=== PATIENT | female | born 1960 | race Caucasian/White ===

== ENCOUNTER 2016-10-10 08:36 | Outpatient (CLI) | payer BC | END 2016-10-10 18:59 | disposition home or self-care (01) | LOC: SMA 08:36 | PROVIDERS: ATTEND Family Medicine | DX: Z12.31 Encounter for screening mammogram for malignant neoplasm of breast (principal) | CPT/HCPCS: 77067; G0202 ==

== ENCOUNTER 2016-11-24 07:42 | Emergency (ER) | payer BC ==
[~2016-11-24] VITALS: Ht 160 cm; Wt 90.7 kg
[2016-11-24 07:46] VITALS: BP_SYST 141
[2016-11-24] MEDS ORDERED: NACL 0.9% 1,000 ML IV ONE (07:52)
[2016-11-24] MEDS ORDERED: PROMETHAZINE HCL 25 MG/ML AMP IVP ONE (08:00)
[2016-11-24] MEDS ORDERED: MORPHINE 4 MG/ML INJ. SYRINGE IVP ONE (08:00)
[2016-11-24 08:43] LABS: BILIRUBIN,URINE NEGATIVE (NEGATIVE); CLARITY/URINE CLEAR (CLEAR); COLOR,URINE YELLOW (YELLOW); GLUCOSE,URINE NEGATIVE (NEGATIVE); KETONES,URINE NEGATIVE (NEGATIVE); LEUKOCYTE ESTERASE ,URINE NEGATIVE (NEGATIVE); NITRITE, URINE NEGATIVE (NEGATIVE); PH,URINE 5.5 (5.0-8.0); PROTEIN URINE NEGATIVE (NEGATIVE); UROBILINOGEN,URINE 0.2 (0.2-1.0)
[2016-11-24 08:44] LABS: BLOOD, URINE TRACE (NEGATIVE)
[2016-11-24 08:45] LABS: BASOPHILS % (AUTO) 0.4 % (0.0-2.0); EOSINOPHILS # (AUTO) 0.7 K/uL (0.0-0.4); EOSINOPHILS % (AUTO) 9.9 % (0.0-4.0); HEMATOCRIT 43.8 % (36-48); HEMOGLOBIN 14.7 g/dL (12.0-16.0); LYMPHOCYTES # (AUTO) 1.6 K/uL (1.0-5.5); LYMPHOCYTES % (AUTO) 22.2 % (20.5-51.5); MEAN CORPUSCULAR HEMOGLOBIN 29 pg (27-31); MEAN CORPUSCULAR HGB CONC 34 % (32-36); MEAN CORPUSCULAR VOLUME 85 fL (79.0-98.0); MONOCYTES # (AUTO) 0.3 K/uL (0.0-1.0); MONOCYTES % (AUTO) 4.4 % (1.7-9.3); NEUTROPHILS # (AUTO) 4.5 K/uL (1.8-7.7); NEUTROPHILS % (AUTO) 63.1 % (40.0-70.0); PLATELET COUNT (AUTO) 257 K/uL (130-430); RED BLOOD CELL COUNT(AUTO) 5.17 MIL/uL (4.2-6.2); RED CELL DISTRIBUTION WIDTH 12.7 % (9.0-15.0); WHITE BLOOD COUNT (AUTO) 7.1 K/uL (4.8-10.8)
[2016-11-24 08:47] LABS: CALCIUM 8.6 mg/dL (8.4-11.0); CREATININE 0.79 mg/dL (0.55-1.30); POTASSIUM 3.4 mmol/L (3.5-5.1)
[2016-11-24 08:50] LABS: INR 0.9 (0.8-1.2); PROTHROMBIN TIME 10.2 SECS (9.5-12.5)
[2016-11-24 08:51] LABS: ALBUMIN 3.9 g/dL (3.4-4.8); TOTAL BILIRUBIN 0.8 mg/dL (0.0-1.0); TOTAL PROTEIN, SERUM 7.4 g/dL (6.4-8.3)
[2016-11-24 08:51] LABS: BACTERIA,URINE RARE /HPF (None Seen); MUCUS,URINE 1+ /LPF (None Seen); RBC,URINE 0-3 /HPF (0-3); WBC,URINE 0-3 /HPF (0-3)
[2016-11-24] MEDS: NACL 0.9% 1,000 ML IV ONE ×2 (08:51→09:11)
[2016-11-24] MEDS ORDERED: IOHEXOL 100 ML IV ONE (09:04)
[2016-11-24 10:09] VITALS: BP_SYST 137
== END 2016-11-24 10:09 | disposition home or self-care (01) ==
LOC: SED 07:42
DX: K52.9 Noninfective gastroenteritis and colitis, unspecified (principal); K85.90 Acute pancreatitis without necrosis or infection, unspecified; I10 Essential (primary) hypertension; Z90.49 Acquired absence of other specified parts of digestive tract; Z88.1 Allergy status to other antibiotic agents
CPT/HCPCS: 36415; 74177; 80053; 81000; 82150; 83690; 85025; 85610; 85730; 96361; 96374; 96375; 99285; J2270; J2550; J7030; Q9967

== ENCOUNTER 2016-11-28 10:44 | Inpatient (IN) | payer BC ==
[~2016-11-28] VITALS: Ht 160 cm; Wt 90.7 kg
[2016-11-28 10:46] VITALS: BP_SYST 130
[2016-11-28] MEDS ORDERED: KETOROLAC TROMETHAMINE 30 MG VIAL IVP ONE (11:30)
[2016-11-28] MEDS ORDERED: ONDANSETRON HCL 4 MG/2 ML VIAL IVP ONE (11:30)
[2016-11-28] MEDS ORDERED: MORPHINE 2 MG/ML INJ. SYRINGE IVP ONE (11:30)
[2016-11-28] MEDS ORDERED: NACL 0.9% 1,000 ML IV ONE ×2 (11:30→13:00)
[2016-11-28] MEDS ORDERED: ONDA4TAB22 PO (11:57)
[2016-11-28] MEDS ORDERED: LOVA20TA2 PO (11:57)
[2016-11-28] MEDS ORDERED: HYDR-1189 PO (11:57)
[2016-11-28] MEDS ORDERED: RANI300T7 PO (11:57)
[2016-11-28 11:58] LABS: BASOPHILS % (AUTO) 0.1 % (0.0-2.0); EOSINOPHILS # (AUTO) 0.6 K/uL (0.0-0.4); EOSINOPHILS % (AUTO) 4.7 % (0.0-4.0); HEMATOCRIT 46.4 % (36-48); HEMOGLOBIN 15.2 g/dL (12.0-16.0); LYMPHOCYTES # (AUTO) 1.4 K/uL (1.0-5.5); LYMPHOCYTES % (AUTO) 11.8 % (20.5-51.5); MEAN CORPUSCULAR HEMOGLOBIN 28 pg (27-31); MEAN CORPUSCULAR HGB CONC 33 % (32-36); MEAN CORPUSCULAR VOLUME 85 fL (79.0-98.0); MONOCYTES # (AUTO) 0.5 K/uL (0.0-1.0); NEUTROPHILS # (AUTO) 9.5 K/uL (1.8-7.7); NEUTROPHILS % (AUTO) 79.4 % (40.0-70.0); PLATELET COUNT (AUTO) 250 K/uL (130-430); RED BLOOD CELL COUNT(AUTO) 5.46 MIL/uL (4.2-6.2); RED CELL DISTRIBUTION WIDTH 12.6 % (9.0-15.0)
[2016-11-28 12:03] LABS: CALCIUM 8.7 mg/dL (8.4-11.0); CREATININE 0.83 mg/dL (0.55-1.30); POTASSIUM 3.3 mmol/L (3.5-5.1)
[2016-11-28 12:15] LABS: ALBUMIN 3.7 g/dL (3.4-4.8); TOTAL BILIRUBIN 1.1 mg/dL (0.0-1.0); TOTAL PROTEIN, SERUM 7.1 g/dL (6.4-8.3)
[2016-11-28 12:47] LABS: BILIRUBIN,URINE 1+ (NEGATIVE); BLOOD, URINE NEGATIVE (NEGATIVE); CLARITY/URINE CLEAR (CLEAR); COLOR,URINE YELLOW (YELLOW); GLUCOSE,URINE NEGATIVE (NEGATIVE); KETONES,URINE NEGATIVE (NEGATIVE); LEUKOCYTE ESTERASE ,URINE NEGATIVE (NEGATIVE); NITRITE, URINE NEGATIVE (NEGATIVE); PH,URINE 5.5 (5.0-8.0); PROTEIN URINE 1+ (NEGATIVE); UROBILINOGEN,URINE 0.2 (0.2-1.0)
[2016-11-28 13:01] LABS: BACTERIA,URINE FEW /HPF (None Seen); RBC,URINE 0-3 /HPF (0-3); WBC,URINE 0-3 /HPF (0-3); YEAST,URINE Few /HPF (None Seen)
[2016-11-28 15:21] VITALS: BP_SYST 151
[2016-11-28] MEDS: ONDANSETRON HCL 4 MG/2 ML VIAL IVP PRN (16:13)
[2016-11-28] MEDS: MORPHINE 2 MG/ML INJ. SYRINGE IVP PRN ×2 (16:14→21:14)
[2016-11-28 20:07] VITALS: BP_SYST 133
[2016-11-28] MEDS: NACL 0.9% 1,000 ML IV SCH ×2 (20:09→20:30)
[2016-11-28] MEDS ORDERED: POTASSIUM CHLORIDE 40 MEQ in NS 250 ML IV ONE (21:30)
[2016-11-28] MEDS: KCL 20 mEq in 100 mL (PREMIX) 100 ML IV SCH (22:00)
[2016-11-28] MEDS ORDERED: KCL 40 mEq in 100 mL (PREMIX) 100 ML IV ONE (22:03)
[2016-11-29] MEDS: KCL 20 mEq in 100 mL (PREMIX) 100 ML IV SCH (00:08)
[2016-11-29 00:09] VITALS: BP_SYST 139
[2016-11-29] MEDS: KETOROLAC TROMETHAMINE 30 MG VIAL IVP PRN ×3 (00:11→17:26)
[2016-11-29] MEDS: NACL 0.9% 1,000 ML IV SCH ×3 (01:29→17:32)
[2016-11-29 04:22] VITALS: BP_SYST 138
[2016-11-29 07:02] LABS: ALANINE AMINOTRANSFERASE 28 U/L (12-78); AMYLASE 95 U/L (0-100); ANION GAP 5 (5-15); ASPARTATE AMINOTRANSFERASE 19 U/L (10-37); CALCIUM 7.8 mg/dL (8.4-11.0); CHLORIDE 112 mmol/L (98-107); CREATININE 0.61 mg/dL (0.55-1.30); GLUCOSE 90 mg/dL (70-99); LIPASE 131 U/L (73-393); POTASSIUM 4.2 mmol/L (3.5-5.1); SODIUM SERUM 142 mmol/L (136-145); TOTAL BILIRUBIN 1.1 mg/dL (0.0-1.0); TOTAL PROTEIN, SERUM 5.7 g/dL (6.4-8.3); UREA NITROGEN, BLOOD 12 mg/dL (8-21)
[2016-11-29 07:03] LABS: BASOPHILS % (AUTO) 0.3 % (0.0-2.0); EOSINOPHILS # (AUTO) 0.8 K/uL (0.0-0.4); EOSINOPHILS % (AUTO) 11.6 % (0.0-4.0); HEMATOCRIT 34.2 % (36-48); HEMOGLOBIN 11.5 g/dL (12.0-16.0); LYMPHOCYTES # (AUTO) 1.9 K/uL (1.0-5.5); LYMPHOCYTES % (AUTO) 27.8 % (20.5-51.5); MEAN CORPUSCULAR HEMOGLOBIN 29 pg (27-31); MEAN CORPUSCULAR HGB CONC 34 % (32-36); MEAN CORPUSCULAR VOLUME 85 fL (79.0-98.0); MONOCYTES # (AUTO) 0.4 K/uL (0.0-1.0); MONOCYTES % (AUTO) 5.4 % (1.7-9.3); NEUTROPHILS # (AUTO) 3.9 K/uL (1.8-7.7); NEUTROPHILS % (AUTO) 54.9 % (40.0-70.0); PLATELET COUNT (AUTO) 196 K/uL (130-430); RED BLOOD CELL COUNT(AUTO) 4.01 MIL/uL (4.2-6.2); RED CELL DISTRIBUTION WIDTH 12.7 % (9.0-15.0)
[2016-11-29 08:30] VITALS: BP_SYST 153
[2016-11-29] MEDS: ONDANSETRON HCL 4 MG/2 ML VIAL IVP PRN ×2 (09:00→21:32)
[2016-11-29] MEDS: MORPHINE 2 MG/ML INJ. SYRINGE IVP PRN ×3 (10:36→21:09)
[2016-11-29 11:46] VITALS: BP_SYST 123
[2016-11-29 15:36] VITALS: BP_SYST 133
[2016-11-29 19:55] VITALS: BP_SYST 134
[2016-11-30 00:07] VITALS: BP_SYST 139
[2016-11-30] MEDS: MORPHINE 2 MG/ML INJ. SYRINGE IVP PRN ×5 (01:33→21:14)
[2016-11-30] MEDS: NACL 0.9% 1,000 ML IV SCH ×5 (01:33→22:50)
[2016-11-30 04:42] VITALS: BP_SYST 128
[2016-11-30] MEDS: ONDANSETRON HCL 4 MG/2 ML VIAL IVP PRN ×2 (06:05→21:14)
[2016-11-30 07:06] LABS: BASOPHILS % (AUTO) 0.4 % (0.0-2.0); EOSINOPHILS # (AUTO) 0.7 K/uL (0.0-0.4); EOSINOPHILS % (AUTO) 11.1 % (0.0-4.0); HEMOGLOBIN 11.7 g/dL (12.0-16.0); LYMPHOCYTES # (AUTO) 1.8 K/uL (1.0-5.5); LYMPHOCYTES % (AUTO) 29.4 % (20.5-51.5); MEAN CORPUSCULAR HEMOGLOBIN 29 pg (27-31); MEAN CORPUSCULAR HGB CONC 34 % (32-36); MEAN CORPUSCULAR VOLUME 85 fL (79.0-98.0); MONOCYTES # (AUTO) 0.3 K/uL (0.0-1.0); MONOCYTES % (AUTO) 4.7 % (1.7-9.3); NEUTROPHILS # (AUTO) 3.4 K/uL (1.8-7.7); NEUTROPHILS % (AUTO) 54.4 % (40.0-70.0); PLATELET COUNT (AUTO) 197 K/uL (130-430); RED BLOOD CELL COUNT(AUTO) 3.99 MIL/uL (4.2-6.2); RED CELL DISTRIBUTION WIDTH 12.3 % (9.0-15.0); WHITE BLOOD COUNT (AUTO) 6.2 K/uL (4.8-10.8)
[2016-11-30 07:22] LABS: ALBUMIN 3.3 g/dL (3.4-4.8); BILIRUBIN,DIRECT 0.3 mg/dL (0.0-0.3); TOTAL BILIRUBIN 1.4 mg/dL (0.0-1.0); TOTAL PROTEIN, SERUM 6.1 g/dL (6.4-8.3)
[2016-11-30 09:25] VITALS: BP_SYST 132
[2016-11-30] MEDS ORDERED: PSYLLIUM HUSK 1 PKT PACKET PO ONE (10:45)
[2016-11-30] MEDS ORDERED: DOCUSATE SODIUM 100 MG CAPSULE PO ONE (10:45)
[2016-11-30] MEDS: KETOROLAC TROMETHAMINE 30 MG VIAL IVP PRN (10:54)
[2016-11-30 11:29] VITALS: BP_SYST 133
[2016-11-30 15:33] VITALS: BP_SYST 133
[2016-12-01 00:40] VITALS: BP_SYST 140
[2016-12-01] MEDS: MORPHINE 2 MG/ML INJ. SYRINGE IVP PRN ×6 (01:03→22:33)
[2016-12-01 04:25] VITALS: BP_SYST 137
[2016-12-01] MEDS: NACL 0.9% 1,000 ML IV SCH ×2 (05:08→12:51)
[2016-12-01] MEDS: ONDANSETRON HCL 4 MG/2 ML VIAL IVP PRN ×3 (05:11→22:38)
[2016-12-01 06:54] LABS: BASOPHILS % (AUTO) 0.4 % (0.0-2.0); EOSINOPHILS # (AUTO) 0.7 K/uL (0.0-0.4); EOSINOPHILS % (AUTO) 10.6 % (0.0-4.0); HEMATOCRIT 33.1 % (36-48); HEMOGLOBIN 11.6 g/dL (12.0-16.0); LYMPHOCYTES # (AUTO) 1.7 K/uL (1.0-5.5); LYMPHOCYTES % (AUTO) 25.4 % (20.5-51.5); MEAN CORPUSCULAR HEMOGLOBIN 30 pg (27-31); MEAN CORPUSCULAR HGB CONC 35 % (32-36); MEAN CORPUSCULAR VOLUME 85 fL (79.0-98.0); MONOCYTES # (AUTO) 0.4 K/uL (0.0-1.0); MONOCYTES % (AUTO) 5.4 % (1.7-9.3); NEUTROPHILS # (AUTO) 3.8 K/uL (1.8-7.7); NEUTROPHILS % (AUTO) 58.2 % (40.0-70.0); PLATELET COUNT (AUTO) 194 K/uL (130-430); RED BLOOD CELL COUNT(AUTO) 3.92 MIL/uL (4.2-6.2); RED CELL DISTRIBUTION WIDTH 12.6 % (9.0-15.0); WHITE BLOOD COUNT (AUTO) 6.6 K/uL (4.8-10.8)
[2016-12-01 07:26] LABS: ALBUMIN 3.2 g/dL (3.4-4.8); CALCIUM 8.1 mg/dL (8.4-11.0); CREATININE 0.81 mg/dL (0.55-1.30); POTASSIUM 3.4 mmol/L (3.5-5.1); TOTAL BILIRUBIN 0.9 mg/dL (0.0-1.0); TOTAL PROTEIN, SERUM 6.3 g/dL (6.4-8.3)
[2016-12-01 07:55] VITALS: BP_SYST 131
[2016-12-01] MEDS ORDERED: MINERAL OIL 133 ML ENEMA RC ONE ×3 (08:45→19:00)
[2016-12-01] MEDS ORDERED: MILK OF MAGNESIA 30 ML UDC PO ONE (09:00)
[2016-12-01] MEDS: DOCUSATE SODIUM 100 MG CAPSULE PO SCH (09:57)
[2016-12-01] MEDS: FAMOTIDINE 20 MG TABLET PO SCH ×2 (09:57→20:48)
[2016-12-01] MEDS: PSYLLIUM HUSK 1 PKT PACKET PO SCH (09:57)
[2016-12-01 11:32] VITALS: BP_SYST 134
[2016-12-01] MEDS: KETOROLAC TROMETHAMINE 30 MG VIAL IVP PRN (12:34)
[2016-12-01 15:33] VITALS: BP_SYST 127
[2016-12-02 00:32] VITALS: BP_SYST 159
[2016-12-02] MEDS: NACL 0.9% 1,000 ML IV SCH ×4 (02:25→23:55)
[2016-12-02] MEDS: MORPHINE 2 MG/ML INJ. SYRINGE IVP PRN ×4 (03:58→21:17)
[2016-12-02 04:47] VITALS: BP_SYST 144
[2016-12-02 06:59] LABS: BASOPHILS % (AUTO) 0.5 % (0.0-2.0); EOSINOPHILS # (AUTO) 0.6 K/uL (0.0-0.4); EOSINOPHILS % (AUTO) 8.1 % (0.0-4.0); HEMATOCRIT 33.8 % (36-48); HEMOGLOBIN 11.7 g/dL (12.0-16.0); LYMPHOCYTES # (AUTO) 1.6 K/uL (1.0-5.5); LYMPHOCYTES % (AUTO) 19.9 % (20.5-51.5); MEAN CORPUSCULAR HEMOGLOBIN 29 pg (27-31); MEAN CORPUSCULAR HGB CONC 35 % (32-36); MEAN CORPUSCULAR VOLUME 85 fL (79.0-98.0); MONOCYTES # (AUTO) 0.5 K/uL (0.0-1.0); MONOCYTES % (AUTO) 5.9 % (1.7-9.3); NEUTROPHILS # (AUTO) 5.3 K/uL (1.8-7.7); NEUTROPHILS % (AUTO) 65.6 % (40.0-70.0); PLATELET COUNT (AUTO) 200 K/uL (130-430); RED BLOOD CELL COUNT(AUTO) 3.97 MIL/uL (4.2-6.2); RED CELL DISTRIBUTION WIDTH 12.6 % (9.0-15.0)
[2016-12-02 07:34] LABS: ALBUMIN 3.3 g/dL (3.4-4.8); CALCIUM 8.2 mg/dL (8.4-11.0); CREATININE 0.6 mg/dL (0.55-1.30); POTASSIUM 3.3 mmol/L (3.5-5.1); TOTAL BILIRUBIN 0.8 mg/dL (0.0-1.0); TOTAL PROTEIN, SERUM 6.2 g/dL (6.4-8.3)
[2016-12-02] MEDS: ONDANSETRON HCL 4 MG/2 ML VIAL IVP PRN (08:09)
[2016-12-02 08:50] VITALS: BP_SYST 152
[2016-12-02] MEDS: PSYLLIUM HUSK 1 PKT PACKET PO SCH (09:00)
[2016-12-02] MEDS: DOCUSATE SODIUM 100 MG CAPSULE PO SCH (09:00)
[2016-12-02] MEDS: FAMOTIDINE 20 MG TABLET PO SCH ×2 (09:00→21:20)
[2016-12-02] MEDS ORDERED: MEPERIDINE HCL/PF 100 MG/ML AMP ONE (11:46)
[2016-12-02] MEDS ORDERED: SIMETHICONE 40 MG/0.6 ML ML ONE (11:47)
[2016-12-02 12:00] VITALS: BP_SYST 141
[2016-12-02] MEDS: MIDAZOLAM HCL 5 MG/5 ML VIAL ONE ×3 (15:28→15:32)
[2016-12-02 16:25] VITALS: BP_SYST 140
[2016-12-02] MEDS: LIPASE/PROTEASE/AMYLASE 1 CAP PO SCH ×2 (18:00→18:15)
[2016-12-02 19:49] VITALS: BP_SYST 144
[2016-12-03] VITALS: BP_SYST 144
[2016-12-03] MEDS: NACL 0.9% 1,000 ML IV SCH ×5 (00:01→23:45)
[2016-12-03] MEDS: MORPHINE 2 MG/ML INJ. SYRINGE IVP PRN ×4 (04:00→22:27)
[2016-12-03 04:05] VITALS: BP_SYST 124
[2016-12-03 09:00] VITALS: BP_SYST 124
[2016-12-03] MEDS: DOCUSATE SODIUM 100 MG CAPSULE PO SCH (09:13)
[2016-12-03] MEDS: FAMOTIDINE 20 MG TABLET PO SCH ×2 (09:13→21:21)
[2016-12-03] MEDS: PSYLLIUM HUSK 1 PKT PACKET PO SCH (09:13)
[2016-12-03] MEDS: LIPASE/PROTEASE/AMYLASE 1 CAP PO SCH ×3 (09:15→18:15)
[2016-12-03] MEDS ORDERED: MINERAL OIL 133 ML ENEMA RC ONE (09:30)
[2016-12-03] MEDS: ONDANSETRON HCL 4 MG/2 ML VIAL IVP PRN ×2 (10:50→16:48)
[2016-12-03 12:00] VITALS: BP_SYST 139
[2016-12-03 15:39] VITALS: BP_SYST 139
[2016-12-03] MEDS ORDERED: MILK OF MAGNESIA 30 ML UDC PO ONE (18:15)
[2016-12-03 21:29] VITALS: BP_SYST 140
[2016-12-04 00:55] VITALS: BP_SYST 156
[2016-12-04 06:15] VITALS: BP_SYST 150
[2016-12-04] MEDS: NACL 0.9% 1,000 ML IV SCH (06:54)
[2016-12-04] MEDS: MORPHINE 2 MG/ML INJ. SYRINGE IVP PRN (06:54)
[2016-12-04] MEDS: ONDANSETRON HCL 4 MG/2 ML VIAL IVP PRN (07:06)
[2016-12-04 08:41] VITALS: BP_SYST 160
[2016-12-04] MEDS: FAMOTIDINE 20 MG TABLET PO SCH (09:20)
[2016-12-04] MEDS: DOCUSATE SODIUM 100 MG CAPSULE PO SCH (09:20)
[2016-12-04] MEDS: PSYLLIUM HUSK 1 PKT PACKET PO SCH (09:20)
[2016-12-04] MEDS: LIPASE/PROTEASE/AMYLASE 1 CAP PO SCH ×2 (09:22→11:27)
[2016-12-04] MEDS ORDERED: ACETAMINOPHEN 500 MG TABLET PO PRN (09:30)
[2016-12-04 11:10] LABS: BASOPHILS % (AUTO) 0.5 % (0.0-2.0); EOSINOPHILS # (AUTO) 0.5 K/uL (0.0-0.4); EOSINOPHILS % (AUTO) 8.2 % (0.0-4.0); HEMATOCRIT 34.3 % (36-48); HEMOGLOBIN 11.9 g/dL (12.0-16.0); LYMPHOCYTES # (AUTO) 1.5 K/uL (1.0-5.5); MEAN CORPUSCULAR HEMOGLOBIN 29 pg (27-31); MEAN CORPUSCULAR HGB CONC 35 % (32-36); MEAN CORPUSCULAR VOLUME 84 fL (79.0-98.0); MONOCYTES # (AUTO) 0.4 K/uL (0.0-1.0); NEUTROPHILS % (AUTO) 61.3 % (40.0-70.0); PLATELET COUNT (AUTO) 207 K/uL (130-430); RED BLOOD CELL COUNT(AUTO) 4.09 MIL/uL (4.2-6.2); RED CELL DISTRIBUTION WIDTH 12.6 % (9.0-15.0); WHITE BLOOD COUNT (AUTO) 6.4 K/uL (4.8-10.8)
[2016-12-04 11:23] LABS: ALBUMIN 3.4 g/dL (3.4-4.8); BILIRUBIN,DIRECT 0.2 mg/dL (0.0-0.3); POTASSIUM 3.6 mmol/L (3.5-5.1); TOTAL BILIRUBIN 0.9 mg/dL (0.0-1.0); TOTAL PROTEIN, SERUM 6.4 g/dL (6.4-8.3)
[2016-12-04 12:00] VITALS: BP_SYST 140
[2016-12-04] MEDS ORDERED: KETOROLAC TROMETHAMINE 30 MG VIAL IVP SCH (12:00)
[2016-12-04] MEDS ORDERED: MINERAL OIL 133 ML ENEMA RC ONE (14:00)
[2016-12-04 14:42] VITALS: BP_SYST 142
[2016-12-04] MEDS ORDERED: LOSARTAN POTASSIUM 50 MG TABLET (COZAAR) PO ONE (15:00)
[2016-12-04 16:00] VITALS: BP_SYST 138
[2016-12-04] MEDS ORDERED: LOSARTAN POTASSIUM 50 MG TABLET (COZAAR) PO SCH (21:00)
[2016-12-05] MEDS ORDERED: LOSARTAN POTASSIUM 50 MG TABLET (COZAAR) PO SCH (09:00)
== END 2016-12-04 15:30 | disposition home or self-care (01) | DRG 391 ==
LOC: SED 10:44 → SMU 14:02
PROVIDERS: ADMIT Family Medicine; ATTEND Family Medicine
PROC: 0DB68ZX Excision of Stomach, Via Natural or Artificial Opening Endoscopic, Diagnostic (ICD-10-PCS; 2016-12-02)
PROC: 0DB98ZX Excision of Duodenum, Via Natural or Artificial Opening Endoscopic, Diagnostic (ICD-10-PCS; principal; 2016-12-02 13:00)
DX: K29.70 Gastritis, unspecified, without bleeding (principal); K85.90 Acute pancreatitis without necrosis or infection, unspecified; I10 Essential (primary) hypertension; K21.9 Gastro-esophageal reflux disease without esophagitis; E66.9 Obesity, unspecified; Z80.3 Family history of malignant neoplasm of breast; Z90.49 Acquired absence of other specified parts of digestive tract; Z90.710 Acquired absence of both cervix and uterus; Z88.1 Allergy status to other antibiotic agents; Z88.2 Allergy status to sulfonamides; Z68.35 Body mass index [BMI] 35.0-35.9, adult; Z79.899 Other long term (current) drug therapy
CPT/HCPCS: 36415; 43239; 74000-TC; 74181; 76700-TC; 76856-TC; 80053; 80076; 81000-TC; 82150-TC; 82787; 83605; 83690-TC; 84132-TC; 84478-TC; 85025; 85610-TC; 85730-TC; 86038; 87040-TC; 87081; 88305; 88312; 88313; 96361; 96374; 96375; 99285; J1885; J2175; J2250; J2270; J2405; J3480; J7030; J7050

== ENCOUNTER 2017-07-15 18:55 | Emergency (ER) | payer BC ==
[~2017-07-15] VITALS: Ht 160 cm; Wt 88.0 kg
[~2017-07-15 18:55] MED LIST: HYDR-1189 PO; LOVA20TA2 PO; ONDA4TAB22 PO; RANI300T7 PO
[2017-07-15 19:01] VITALS: BP_SYST 162
--- NOTE | 2017-07-15 19:05 | NUR ---
PT PLACED IN BED 7
--- NOTE | 2017-07-15 19:07 | NUR ---
ER ORESTES Lubin at bedside evaluating the patient
--- NOTE | 2017-07-15 19:14 | NUR ---
Patient to ER C/O bump to the head. Patient states that she was taking the trash out when the wind blew the lid off and hit her in the head. Patient denies KO, mild nausea, no vomiting, ambulated with steady gait. Patient has a large hematoma to the right side of the forehead. AAOx4, unlabored breathing, no signs of acute distress.
[2017-07-15] MEDS ORDERED: HYDROcodone/ACETAMIN 7.5-325 MG TAB PO ONE (19:15)
[2017-07-15] MEDS ORDERED: ONDANSETRON 4 MG ODT TAB PO ONE (19:15)
[2017-07-15] MEDS ORDERED: KETOROLAC TROMETHAMINE 60 MG/2 ML VIAL IM ONE (19:45)
--- NOTE | 2017-07-15 20:15 | NUR ---
Patient reports pain 2/10 30 minutes after administration of TORADOL. No adverse reactions noted. Will continue to monitor.
[2017-07-15 20:26] VITALS: BP_SYST 136
--- NOTE | 2017-07-15 20:26 | NUR ---
Patient given written and verbal discharge instructions and verbalizes understanding. ER [employer] Delmy Lara discussed with patient the results and treatment provided. Patient in stable condition. ID arm band removed. Rx of tramadol, motrin, zofran given. Patient educated on pain management and to follow up with PMD. Pain Scale 0/10. Opportunity for questions provided and answered.
== END 2017-07-15 20:26 | disposition home or self-care (01) ==
LOC: SED 18:55
DX: S00.83XA Contusion of other part of head, initial encounter (principal); Z88.2 Allergy status to sulfonamides; Z88.1 Allergy status to other antibiotic agents; W22.8XXA Striking against or struck by other objects, initial encounter; Y93.89 Activity, other specified; Y92.89 Other specified places as the place of occurrence of the external cause; Y99.8 Other external cause status
CPT/HCPCS: 96372; 99283; J1885; Q0162

== ENCOUNTER 2017-09-01 12:28 | Outpatient (CLI) | payer BC | END 2017-09-01 21:09 | disposition home or self-care (01) | LOC: SUS 12:28 | PROVIDERS: ATTEND Family Medicine | DX: K85.90 Acute pancreatitis without necrosis or infection, unspecified (principal); R93.2 Abnormal findings on diagnostic imaging of liver and biliary tract; Z86.79 Personal history of other diseases of the circulatory system | CPT/HCPCS: 76700-TC ==

== ENCOUNTER 2017-12-16 09:40 | Outpatient (CLI) | payer BC | END 2017-12-16 20:21 | disposition home or self-care (01) | LOC: SMA 09:40 | PROVIDERS: ATTEND Family Medicine | DX: Z12.31 Encounter for screening mammogram for malignant neoplasm of breast (principal) | CPT/HCPCS: 77067 ==

== ENCOUNTER 2018-05-28 21:49 | Emergency (ER) | payer BC ==
[~2018-05-28] VITALS: Ht 160 cm; Wt 90.7 kg
[2018-05-28 22:01] VITALS: BP_SYST 152
[2018-05-28 22:30] LABS: BILIRUBIN,URINE NEGATIVE (NEGATIVE); BLOOD, URINE NEGATIVE (NEGATIVE); CLARITY/URINE SL HAZY (CLEAR); COLOR,URINE YELLOW (YELLOW); GLUCOSE,URINE NEGATIVE (NEGATIVE); KETONES,URINE NEGATIVE (NEGATIVE); LEUKOCYTE ESTERASE ,URINE NEGATIVE (NEGATIVE); NITRITE, URINE NEGATIVE (NEGATIVE); PH,URINE 5.5 (5.0-8.0); PROTEIN URINE NEGATIVE (NEGATIVE); UROBILINOGEN,URINE 0.2 (0.2-1.0)
[2018-05-28 22:42] LABS: BASOPHILS % (AUTO) 0.6 % (0.0-2.0); EOSINOPHILS # (AUTO) 0.2 K/uL (0.0-0.4); EOSINOPHILS % (AUTO) 3.2 % (0.0-4.0); HEMATOCRIT 38.8 % (36-48); HEMOGLOBIN 13.1 g/dL (12.0-16.0); LYMPHOCYTES # (AUTO) 2.6 K/uL (1.0-5.5); LYMPHOCYTES % (AUTO) 35.7 % (20.5-51.5); MEAN CORPUSCULAR HEMOGLOBIN 30 pg (27-31); MEAN CORPUSCULAR HGB CONC 34 % (32-36); MEAN CORPUSCULAR VOLUME 88 fL (79.0-98.0); MONOCYTES # (AUTO) 0.4 K/uL (0.0-1.0); MONOCYTES % (AUTO) 5.7 % (1.7-9.3); NEUTROPHILS % (AUTO) 54.8 % (40.0-70.0); PLATELET COUNT (AUTO) 251 K/uL (130-430); RED BLOOD CELL COUNT(AUTO) 4.41 MIL/uL (4.2-6.2); RED CELL DISTRIBUTION WIDTH 12.8 % (9.0-15.0); WHITE BLOOD COUNT (AUTO) 7.2 K/uL (4.8-10.8)
[2018-05-28 22:51] LABS: CREATININE 0.56 mg/dL (0.55-1.30); POTASSIUM 3.7 mmol/L (3.5-5.1)
[2018-05-28 22:55] LABS: ALBUMIN 3.9 g/dL (3.4-4.8); TOTAL BILIRUBIN 0.9 mg/dL (0.0-1.0)
--- NOTE | 2018-05-29 01:07 | NUR ---
Patient to ER bed 08 to gown for evaluation. Side rails up. Report received from IVELISSE Monroe.
--- NOTE | 2018-05-29 01:08 | NUR ---
Patient complaining of right flank pain x 4 days with nausea. Reports pain 8/10 radiating to epigastric area. Patient states she has history of pancreatitis. No other complaints/injuries per patient or as noted. Will continue to monitor.
--- NOTE | 2018-05-29 01:10 | NUR ---
ER at bedside examining patient.
--- NOTE | 2018-05-29 01:36 | NUR ---
Patient states that "I want to do the CT scan with my own doctor. I just want to go home and lay down." notified.
[2018-05-29] MEDS ORDERED: HYDROcodone/ACETAMIN 10-325 MG TAB PO ONE (02:00)
[2018-05-29 02:08] VITALS: BP_SYST 136
--- NOTE | 2018-05-29 02:08 | NUR ---
Patient given written and verbal discharge instructions and verbalizes understanding. ER MD discussed with patient the results and treatment provided. Patient in stable condition. ID arm band removed. Rx of Pettibone given. Patient educated on pain management and to follow up with PMD in 2-3 days. Pain Scale 0/10 Opportunity for questions provided and answered. Medication side effect fact sheet provided.
== END 2018-05-29 02:08 | disposition home or self-care (01) ==
LOC: SED 21:49
DX: R10.84 Generalized abdominal pain (principal); R03.0 Elevated blood-pressure reading, without diagnosis of hypertension; Z90.710 Acquired absence of both cervix and uterus; Z88.2 Allergy status to sulfonamides; Z88.8 Allergy status to other drugs, medicaments and biological substances; Z79.899 Other long term (current) drug therapy
CPT/HCPCS: 36415; 80053; 81003; 83690-TC; 85025; 99284

== ENCOUNTER 2018-12-28 12:59 | Outpatient (CLI) | payer BC | END 2018-12-28 21:12 | disposition home or self-care (01) | LOC: SMA 12:59 | PROVIDERS: ATTEND Family Medicine | DX: Z12.31 Encounter for screening mammogram for malignant neoplasm of breast (principal) | CPT/HCPCS: 77067 ==

== ENCOUNTER 2020-03-21 09:59 | Outpatient (CLI) | payer BC | END 2020-03-21 20:20 | disposition home or self-care (01) | LOC: SMA 09:59 | PROVIDERS: ATTEND Family Medicine | DX: Z12.31 Encounter for screening mammogram for malignant neoplasm of breast (principal) | CPT/HCPCS: 77067 ==

== ENCOUNTER 2021-01-03 10:06 | Outpatient (CLI) | payer BC ==
[~2021-01-03 10:06] MED LIST changes: -HYDR-1189 PO; +HYDR-3919 PO
== END 2021-01-03 20:49 | disposition home or self-care (01) ==
LOC: SMA 10:06
PROVIDERS: ATTEND Family Medicine
DX: Z12.31 Encounter for screening mammogram for malignant neoplasm of breast (principal)
CPT/HCPCS: 77067